=== PATIENT | female | born 1985 | race Caucasian/White ===

== ENCOUNTER → 2020-10-19 | Outpatient (REF) | payer BC ==
[~2020-10-19] MED LIST: FLIN1CHW PO; MOTR200T44 PO; TYLE167L PO
== END ==
LOC: M SFHCWAGY 18:06
PROVIDERS: ATTEND Obstetrics & Gynecology
DX: Z01.419 Encounter for gynecological examination (general) (routine) without abnormal findings (principal)

== ENCOUNTER → 2021-01-19 | Outpatient (CLI) | payer SELFPAY | LOC: M LABSMTC 12:50 | PROVIDERS: ATTEND Pediatrics | DX: Z20.822 Contact with and (suspected) exposure to COVID-19 (principal) ==

== ENCOUNTER → 2025-01-22 | Outpatient (REF) | payer BC | LOC: M LAB REF 16:14 | PROVIDERS: ATTEND Physician Assistant | DX: B34.9 Viral infection, unspecified (principal) ==